=== PATIENT | female | born 1990 | race African-American/Black ===

== ENCOUNTER 2017-08-28 23:00 | Emergency (ER) | payer OTHER ==
[~2017-08-28] VITALS: Ht 160 cm; Wt 76.2 kg
[2017-08-28] MEDS ORDERED: PROZAC20 MG PO (23:50)
[2017-08-29 00:08] VITALS: BP 141/102
== END 2017-08-29 00:09 | disposition home or self-care (01) ==
LOC: EME 23:00 → RME 23:00
DX: Z76.0 Encounter for issue of repeat prescription (principal); F32.9 Major depressive disorder, single episode, unspecified; F17.200 Nicotine dependence, unspecified, uncomplicated
CPT/HCPCS: 99281; 99283

== ENCOUNTER 2017-09-08 13:36 | Emergency (ER) | payer OTHER ==
[~2017-09-08] VITALS: Ht 160 cm; Wt 74.7 kg
[~2017-09-08 13:36] MED LIST: PROZAC20 MG PO
[2017-09-08] MEDS ORDERED: MOTRIN600 MG PO (15:18)
[2017-09-08 15:27] VITALS: BP 123/74
== END 2017-09-08 15:28 | disposition home or self-care (01) ==
LOC: EME 13:36
DX: S83.91XA Sprain of unspecified site of right knee, initial encounter (principal); X58.XXXA Exposure to other specified factors, initial encounter; F17.200 Nicotine dependence, unspecified, uncomplicated
CPT/HCPCS: 73564; 99281; 99282